=== PATIENT | male | born 2000 | race Hispanic/Latino ===

== ENCOUNTER 2019-06-28 01:42 | Emergency (ER) | payer OTHER ==
[~2019-06-28] VITALS: Ht 175.3 cm; Wt 104.3 kg
--- NOTE | 2019-06-28 02:11 | NUR ---
RETURNED FROM XR TO RM 1. GIRLFRIEND AT BEDSIDE
--- NOTE | 2019-06-28 02:13 | Diagnostic Imaging Report ---
EXAMINATION: CXR 2 VIEW - HOPD INDICATION: Chest pain. ETOH. Drugs. COMPARISON: None FINDINGS: TUBES and LINES: None. LUNGS: Lungs are well inflated. Lungs are clear. There is no evidence of pneumonia or pulmonary edema. PLEURA: No pleural effusion or pneumothorax. HEART AND MEDIASTINUM: The cardiomediastinal silhouette is unremarkable. BONES AND SOFT TISSUES: No acute osseous lesion. Soft tissues are unremarkable. UPPER ABDOMEN: No free air under the diaphragm. IMPRESSION: No acute thoracic abnormality. Signed by: Dr. Catherine Benítez M.D. on 06/28/2019 2:10 AM
[2019-06-28 02:35] VITALS: BP 141/64
== END 2019-06-28 02:32 | disposition home or self-care (01) ==
LOC: FSED 01:42
DX: R00.2 Palpitations (principal); F10.129 Alcohol abuse with intoxication, unspecified; F41.1 Generalized anxiety disorder
CPT/HCPCS: 71046; 93005; 99283